=== PATIENT | male | born 1955 | race Caucasian/White ===

== ENCOUNTER 2023-10-09 11:21 | Day surgery (SDC) | payer BC, MEDICARE ==
[~2023-10-09] VITALS: Ht 177.8 cm; Wt 102.1 kg
[2023-10-09 12:00] VITALS: RESP 15; O2SAT 95
[2023-10-09] MEDS ORDERED: NO HOME MEDS (12:21)
[2023-10-09 12:44] VITALS: BP 156/107; PULSE 64; RESP 14; TEMP 98.2; O2SAT 95
[2023-10-09] MEDS ORDERED: LIDOcaine 1% (10mg/ml)w/preservative inj. 20ml MDV ONE (12:52)
[2023-10-09 12:59] VITALS: BP 141/88; PULSE 61; RESP 15; O2SAT 95
[2023-10-09 13:14] VITALS: BP 134/89; PULSE 63; RESP 15; O2SAT 96
== END 2023-10-09 13:20 | disposition home or self-care (01) ==
LOC: SSTAY O 11:21
PROVIDERS: ATTEND Radiology Vascular & Interventional Radiology
DX: K11.8 Other diseases of salivary glands (principal)
CPT/HCPCS: 10005; J3490